=== PATIENT | male | born 1970 | race African-American/Black ===

== ENCOUNTER 2023-07-08 00:13 | Emergency (ER) | payer OTHER, MEDICAID ==
[~2023-07-08] VITALS: Ht 188 cm; Wt 99.0 kg
[2023-07-08 00:30] VITALS: O2SAT 100
[2023-07-08 05:04] LABS: CLARITY URINE CLOUDY (CLEAR); COLOR URINE DARK YELLOW (YELLOW); GLUCOSE URINE NEGATIVE (NEGATIVE); KETONES URINE NEGATIVE (NEGATIVE); LEUKOCYTE ESTERASE URINE NEGATIVE (NEGATIVE); NITRITE URINE NEGATIVE (NEGATIVE); OCCULT BLOOD URINE NEGATIVE (NEGATIVE); PH URINE 5.5 (4.5-8.0); PROTEIN URINE 1+ (NEGATIVE); SPECIFIC GRAVITY URINE 1.037 (1.005-1.030)
[2023-07-08] MEDS: ACETAMINOPHEN WITH CODEINE 300/30MG TABLET PO ONE (05:30)
[2023-07-08 05:41] LABS: RBC URINE 0-2 /hpf (0-2); SQUAMOUS EPITHELIAL CELL URINE FEW /lpf (RARE/1+); WBC URINE NONE SEEN /hpf (0-2)
[2023-07-08 05:42] LABS: BACTERIA URINE TRACE; CALCIUM OXALATE CRYSTALS URINE 1+ /lpf
[2023-07-08 06:30] VITALS: BP 126/84; PULSE 83; RESP 16; TEMP 98.1
[2023-07-08] MEDS ORDERED: TOPUD PO (07:00)
== END 2023-07-08 07:05 | disposition home or self-care (01) ==
LOC: ER 00:13
DX: R10.9 Unspecified abdominal pain (principal); R30.9 Painful micturition, unspecified
CPT/HCPCS: 76770; 81003; 99284